=== PATIENT | female | born 1970 | race Caucasian/White ===

== ENCOUNTER 2017-02-08 23:51 | Emergency (ER) | payer OTHER ==
[~2017-02-08] VITALS: Ht 170.2 cm; Wt 65.0 kg
[2017-02-09] MEDS ORDERED: MULTI-VITAMIN INFUSION INJ 10 ML, THIAMINE HCL INJ 100 MG, FoLIC ACID INJ 1 MG in SODIU... IV ONE (00:15)
[2017-02-09 00:22] VITALS: Ht 170.2 cm; Wt 65.0 kg
[2017-02-09 01:45] LABS: HEMATOCRIT 42.3 % (37-47); MEAN CELL VOLUME 95.9 fL (80-100); MEAN CORPUSCULAR HEMOGLOBIN 33.8 pg (25-34); MEAN CORPUSCULAR HGB CONC 35.2 g/dl (32-36); MEAN PLATELET VOLUME 11.2 fL (7.4-10.4); PLATELET COUNT 163 K/uL (130-400); RED BLOOD COUNT 4.41 M/uL (4.2-5.4); WHITE BLOOD COUNT 5.59 K/uL (4.8-10.8)
[2017-02-09 02:03] LABS: BUN/CREATININE RATIO 20.1 (10-20); CALCIUM 8.6 mg/dl (8.5-10.1); CREATININE 0.64 mg/dl (0.60-1.20); MAGNESIUM 1.9 mg/dl (1.8-2.4); POTASSIUM 3.9 mmol/L (3.5-5.1)
[2017-02-09 02:14] LABS: BASO % 1.1 %; BASO ABS # 0.06 K/uL (0-0.2); COMPLETE YES; IG% 0.2 %; LYMPH % 51.9 %; NEUT % 39.8 %; THYROID STIMULATING HORMONE 0.402 uIu/ml (0.300-4.500)
[2017-02-09 02:29] LABS: ACETAMINOPHEN < 2 ug/ml (10-30)
[2017-02-09 02:48] LABS: URINE APPEARANCE CLEAR (CLEAR); URINE BILIRUBIN NEG (NEG); URINE COLOR YELLOW; URINE NITRITE NEG (NEG); URINE SPECIFIC GRAVITY 1.014 (1.000-1.030); UROBILINOGEN NEG (NEG)
[2017-02-09 02:54] LABS: MANUAL MICROSCOPIC REQUIRED? NO; REVIEW REQ? NO; ZZUR CULT IF INDIC CLEAN CATCH NO
[2017-02-09 03:07] VITALS: TEMP 36.9
[2017-02-09 03:08] LABS: BENZODIAZEPINE, URINE NEG (NEG); COCAINE,URINE NEG (NEG); PHENCYCLIDINE, URINE NEG (NEG)
[2017-02-09 03:36] VITALS: BP 124/82; PULSE 80; O2SAT 95
--- NOTE | 2017-02-09 06:37 | DIAGNOSTIC IMAGING REPORT ---
CT HEAD WITHOUT CONTRAST (CT) CLINICAL HISTORY: Seizure. Ethanol intoxication. COMPARISON STUDY: No previous studies for comparison. TECHNIQUE: Axial CT of the brain is performed from the vertex to the skull base. IV contrast was not administered for this examination. A dose lowering technique was utilized adhering to the principles of ALARA. CT DOSE: 537.48 mGy.cm FINDINGS: No intra or extra-axial mass lesions are visualized. There is no CT evidence of acute cortical infarction. There is no evidence of midline shift. There is no acute hemorrhage. No calvarial fractures are visualized. There is no evidence of pathologic ventricular dilatation. There is no evidence of acute sinusitis IMPRESSION: No acute intracranial findings Electronically signed by: Byron Hair M.D. 02/09/2017 6:36 AM Dictated Date/Time: 02/09/2017 6:35 AM
--- NOTE | 2017-02-09 07:18 | EMERGENCY ROOM VISIT NOTE ---
History Report prepared by Antoninoibe: Katy Schulz Under the Supervision of: Dr. Shanna Brannon M.D. First contact with patient: 00:00 Chief Complaint: OTHER COMPLAINT Stated Complaint: SEIZURES/ALCOHOL OVERDOSE History of Present Illness The patient is a 46 year old female who presents to the Emergency Room with complaints of an episode of a seizure occurring prior to arrival. The patient notes a history of seizures. She reports that she hasn't taken her medications in over a month because she lost her insurance. The patient reports that she has been drinking tonight and has had a six pack on her own. She notes that she drinks daily. The patient reports that she recently has been under a lot of stress. The mother reports that this seizure was different from her normal. She reports that she normally just shakes. She states in this one she was bent backwards and her head was arched back. The patient notes her last seizure was two years ago. The patient denies using drugs anymore and reports not remembering the last time she used. Pt states she would like to go home, she has an appt with her doctor later today. Source of History: patient (Katy Schulz), family Onset: prior to arrival Position: other (global) Quality: other (global) Timing: other (episode) Note: The mother complains that this was an atypical seizure. Review of Systems See HPI for pertinent positives & negatives. A total of 10 systems reviewed and were otherwise negative. Past Medical & Surgical Medical Problems: (1) Hx of seizure disorder Family History No pertinent family history Social History Alcohol Use: heavy Drug Use: heroin (former) Marital Status: Housing Status: lives with family Current/Historical Medications No Active Prescriptions or Reported Meds Allergies Coded Allergies: Aspirin (Verified Allergy, Severe, ANAPHYLAXIS, 02/09/17) Codeine (Verified Allergy, Severe, ANAPHYLAXIS, 02/09/17) Penicillins (Verified Allergy, Severe, SOB, HIVES, RASH, 02/09/17) Adhesives (Verified Allergy, Intermediate, RASH, ITCHY, IRRITATION, ) Physical Exam Vital Signs Date Time Temp Pulse Resp B/P (MAP) Pulse Ox O2 Delivery O2 Flow Rate FiO2 02/09/17 03:36 80 21 124/82 95 Room Air 02/09/17 03:07 36.9 91 18 124/87 94 Room Air 02/09/17 03:06 96 18 96 02/09/17 03:02 124/87 02/09/17 02:31 103/69 02/09/17 02:06 73 22 92 02/09/17 02:01 98/62 02/09/17 01:51 72 22 92 02/09/17 01:31 101/72 02/09/17 01:21 76 15 95 02/09/17 01:13 109/64 02/09/17 00:51 92 23 91 02/09/17 00:33 104/73 02/09/17 00:22 85 17 95/65 91 Room Air 02/09/17 00:21 91 16 90 02/09/17 00:03 87 02/09/17 00:02 95/65 Physical Exam Vital signs reviewed. General: Odor of EtOH in the breath, disheveled 46-year-old female. No signs of trauma. HEENT: Mild scleral injection bilaterally, PERRLA, neck supple, dry mucous membranes. Cardiovascular: Regular rate and rhythm, no extra sounds. Pulmonary: Clear to auscultation bilaterally, normal work of breathing. Abdomen: Soft, nontender, nondistended, positive bowel sounds. Musculoskeletal: Upper and lower extremities atraumatic, no peripheral edema Skin: Warm, dry, no rash. Atraumatic. Multiple tattoos. Neurologic: Patient is currently verbal. Awake and oriented x 3 Medical Decision & Procedures ER Provider Diagnostic Interpretation: Radiology results as stated below per my review and radiologist interpretation: CT HEAD: No acute intracranial abnormality identified. Small hypodensity in the right basal ganglia may represent a small remote lacunar infarct versus prominent perivascular space. Radiologist: Leonor Loera M.D. Study ready at 03:33 and initial results transmitted at 03:46. Laboratory Results 02/09/17 01:37 Red Blood Count 4.41, Mean Corpuscular Volume 95.9, Mean Corpuscular Hemoglobin 33.8, Mean Corpuscular Hemoglobin Concent 35.2, Mean Platelet Volume 11.2, Neutrophils (%) (Auto) 39.8, Lymphocytes (%) (Auto) 51.9, Monocytes (%) (Auto) 5.0, Eosinophils (%) (Auto) 2.0, Basophils (%) (Auto) 1.1, Neutrophils # (Auto) 2.23, Lymphocytes # (Auto) 2.90, Monocytes # (Auto) 0.28, Eosinophils # (Auto) 0.11, Basophils # (Auto) 0.06 02/09/17 01:37 Test 02/09/17 00:35 02/09/17 01:37 02/09/17 02:37 Ethyl Alcohol mg/dL 335.0 mg/dl (0-3) White Blood Count 5.59 K/uL (4.8-10.8) Red Blood Count 4.41 M/uL (4.2-5.4) Hemoglobin 14.9 g/dL (12.0-16.0) Hematocrit 42.3 % (37-47) Mean Corpuscular Volume 95.9 fL (80-100) Mean Corpuscular Hemoglobin 33.8 pg (25-34) Mean Corpuscular Hemoglobin Concent 35.2 g/dl (32-36) Platelet Count 163 K/uL (130-400) Mean Platelet Volume 11.2 fL (7.4-10.4) Neutrophils (%) (Auto) 39.8 % Lymphocytes (%) (Auto) 51.9 % Monocytes (%) (Auto) 5.0 % Eosinophils (%) (Auto) 2.0 % Basophils (%) (Auto) 1.1 % Neutrophils # (Auto) 2.23 K/uL (1.4-6.5) Lymphocytes # (Auto) 2.90 K/uL (1.2-3.4) Monocytes # (Auto) 0.28 K/uL (0.11-0.59) Eosinophils # (Auto) 0.11 K/uL (0-0.5) Basophils # (Auto) 0.06 K/uL (0-0.2) RDW Standard Deviation 48.7 fL (36.4-46.3) RDW Coefficient of Variation 13.8 % (11.5-14.5) Immature Granulocyte % (Auto) 0.2 % Immature Granulocyte # (Auto) 0.01 K/uL (0.00-0.02) Anion Gap 10.0 mmol/L (3-11) Est Creatinine Clear Calc Drug Dose 106.8 ml/min Estimated GFR () 124.0 Estimated GFR (Non- 107.0 BUN/Creatinine Ratio 20.1 (10-20) Calcium Level 8.6 mg/dl (8.5-10.1) Magnesium Level 1.9 mg/dl (1.8-2.4) Total Bilirubin 0.3 mg/dl (0.2-1) Direct Bilirubin 0.1 mg/dl (0-0.2) Aspartate Amino Transf (AST/SGOT) 182 U/L (15-37) Alanine Aminotransferase (ALT/SGPT) 120 U/L (12-78) Alkaline Phosphatase 105 U/L (45-117) Total Protein 8.9 gm/dl (6.4-8.2) Albumin 3.6 gm/dl (3.4-5.0) Thyroid Stimulating Hormone (TSH) 0.402 uIu/ml (0.300-4.500) Salicylates Level 6.9 mg/dl (2.8-20) Acetaminophen Level < 2 ug/ml (10-30) Phenytoin (Dilantin) Level 0.6 mcg/mL (10-20) Urine Color YELLOW Urine Appearance CLEAR (CLEAR) Urine pH 5.0 (4.5-7.5) Urine Specific [place] 1.014 (1.000-1.030) Urine Protein NEG (NEG) Urine Glucose (UA) NEG (NEG) Urine Ketones NEG (NEG) Urine Occult Blood NEG (NEG) Urine Nitrite NEG (NEG) Urine Bilirubin NEG (NEG) Urine Urobilinogen NEG (NEG) Urine Leukocyte Esterase NEG (NEG) Urine Opiates Screen NEG (NEG) Urine Methadone, Qualitative NEG (NEG) Urine Barbiturates NEG (NEG) Urine Phencyclidine (PCP) Level NEG (NEG) Ur Amphetamine/Methamphetamine NEG (NEG) MDMA (Ecstasy) Screen NEG (NEG) Urine Benzodiazepines Screen NEG (NEG) Urine Cocaine Metabolite NEG (NEG) Urine Marijuana (THC) NEG (NEG) Laboratory results per my review. Medications Administered Medications (Trade) Dose Ordered Sig/[place] Route Start Time Stop Time Status Last Admin Dose Admin Multivitamins 10 ml/Thiamine HCl 100 mg/Folic Acid 1 mg/Sodium Chloride 1,011.2 ml @ 300 mls/ hr [id number] ONCE IV 02/09/17 00:15 02/09/17 03:37 DC 02/09/17 00:33 300 MLS/HR ECG Indication: other (seizure) Rate (beats per minute): 91 Findings: no acute ischemic change, no ectopy ED Course 0011: Past medical records reviewed. The patient was evaluated in room A9B. A complete history and physical examination was performed. 0015: Ordered Multivitamins 10 ml/Thiamine HCl 100 mg/Folic Acid 1 mg/Sodium Chloride 1011.2 ml @ 300 mls/hr IV. 1347: Upon reevaluation, the patient appeared to have improvement of her symptoms. I discussed findings with the patient. She verbalized agreement of the treatment plan. The patient was discharged home. Medical Decision Differential diagnoses include recurrent seizures, pseudoseizures, alcohol intoxications, polysubstance abuse, anxiety. This pt was evaluated and appeared to be in no distress. IV access was obtained and lab work was drawn. Pt was observed on the secured entrance monitor with seizure precautions maintained. Pt reportedly had a seizure in front of nursing staff with back arching, upper and lower extremity movements and breath holding. Pt was apparently directable during the episode that lasted several seconds. She also spoke to staff during the event. It is difficult to say if the pt is having epileptic seizures. She is alcohol dependent and heavily intoxicated currently. ETOH is 335 and pt is awake and talking. I do not think the episode this evening is alcohol withdrawal. Pt was observed and had no further activity. Family was at the bedside. She requested to be d/c to their care as she has f/u with PCP later today. She did get 0.5L banana bag, as her IV was accidently dislodged. Pt was d/c and will f/u with PCP as scheduled. She was advised to return to the ED for worsening of symptoms or any medical concerns. Impression Primary Impression: Seizure disorder Additional Impression: Alcohol abuse Scribe Attestation The scribe's documentation has been prepared under my direction and personally reviewed by me in its entirety. I confirm that the note above accurately reflects all work, treatment, procedures, and medical decision making performed by me. Departure Information Dispostion Home / Self-Care Prescriptions No Active Prescriptions or Reported Meds Referrals No Doctor, Assigned (PCP) Forms HOME CARE DOCUMENTATION FORM, IMPORTANT VISIT INFORMATION, WORK / SCHOOL INSTRUCTIONS Patient Instructions My [facility] Additional Instructions Diagnosis: Seizure disorder, alcohol abuse Follow up with your doctor today for reevaluation and to re-establish your medications. Consider alcohol rehabilitation. Return to the ED for worsening of symptoms or any medical concerns. Problem Qualifiers
== END 2017-02-09 04:28 | disposition home or self-care (01) ==
LOC: EDBD 23:51 → C.EDA 23:52
DX: G40.909 Epilepsy, unspecified, not intractable, without status epilepticus (principal); F10.10 Alcohol abuse, uncomplicated